=== PATIENT | female | born 1935 | race Caucasian/White ===

== ENCOUNTER 2021-08-04 10:15 | Inpatient (IN) ==
[2021-08-04 11:15] LABS: Bilirubin,Urine Negative (Negative); Blood,Urine Trace-intact (Negative); Clarity,Urine Clear (Clear); Color,Urine Yellow (Yellow); Glucose,Urine (UA) Normal (Normal); Ketones,Urine Trace mg/dL (Negative); Leukocyte Esterase,Urine Negative (Negative); Nitrite,Urine Negative (Negative); PH,Urine 7.5 pH Units (5.0-8.0); Protein,Urine 30 mg/dL (Neg-Trace); Urobilinogen,Urine Normal (Normal)
[2021-08-04 11:23] LABS: Basophils % 0.7 %; Eosinophils # 0.1 K/mcL (0.0-0.6); Eosinophils % 0.9 %; Hematocrit 43.3 % (35.3-44.9); Hemoglobin 14.5 g/dL (11.5-15.4); Immature Granulocytes % 0.2 % (0-4); Lymphocytes # 2.4 K/mcL (0.6-4.6); Lymphocytes % 45.7 %; Mean Corpuscular HGB Conc 33.5 g/dL (31.6-35.5); Mean Corpuscular Hemoglobin 30.5 pg (28.0-33.3); Mean Platelet Volume 10.4 fL (9.4-12.4); Monocytes # 0.6 K/mcL (0.0-1.3); Monocytes % 11.2 %; Neutrophils # 2.2 K/mcL (1.6-8.9); Platelet Count 219 K/mcL (140-400); Red Blood Count 4.76 M/mcL (3.82-4.97); Red Cell Distribution Width 14.5 % (11.5-14.5); Segmented Neutrophils % 41.3 %; White Blood Count 5.3 K/mcL (4.3-11.1)
[2021-08-04 11:31] LABS: INR 1.1; Prothrombin Time 11.7 Seconds (9.4-12.1)
[2021-08-04 11:36] LABS: Mucus,Urine Few per lpf (None-Few); RBC,Urine 0-3 per hpf (0-3)
[2021-08-04 11:40] LABS: Alanine Aminotransferase 22 Units/L (7-52); Albumin 3.8 g/dL (3.5-5.7); Albumin/Globulin Ratio 0.8 (1.1-2.2); Alkaline Phosphatase 65 Units/L (34-104); Aspartate Amino Transferase 34 Units/L (13-39); BUN/Creatinine Ratio 22 (6-26); Bilirubin,Total 0.4 mg/dL (0.3-1.0); Blood Urea Nitrogen 20 mg/dL (8-23); Calcium 9.1 mg/dL (8.6-10.3); Carbon Dioxide 24 mEq/L (23-29); Chloride 102 mEq/L (98-107); Globulin 4.5 g/dL (2.4-3.5); Glucose 107 mg/dL (70-105); Magnesium 1.9 mg/dL (1.6-2.6); Osmolality,Calculated 287 (280-300); Phosphorous 2.2 mg/dL (2.7-4.5); Potassium 4.1 mEq/L (3.5-5.1); Sodium 137 mEq/L (136-145); Total Protein 8.3 g/dL (6.4-8.9); eGFR For African Americans > 60 (> 60); eGFR For Non-African Americans > 60 (> 60)
[2021-08-04 11:43] LABS: Troponin I < 0.03 ng/mL (< 0.04)
[2021-08-04] MEDS ORDERED: Isovue-370 500 ML BOTTLE IVP ONE (11:44)
[2021-08-04] MEDS ORDERED: Acetaminophen 325 MG TABLET PO PRN (13:38)
[2021-08-04] MEDS ORDERED: Naloxone 0.4 MG/ML INJ IVP PRN (13:38)
[2021-08-04] MEDS ORDERED: Ondansetron 4 MG/2 ML VIAL IVP PRN (13:53)
[2021-08-04] MEDS: amLODIPine 5 MG TABLET PO SCH (16:42)
[2021-08-04] MEDS: 0.9 % Sodium Chloride 1,000 ML IVC SCH (16:44)
[2021-08-04] MEDS ORDERED: Benzonatate 100 MG CAPSULE PO PRN (17:44)
[2021-08-05] MEDS ORDERED: *HR* Enoxaparin 40 MG/0.4 ML SYRINGE SQ SCH (06:00)
[2021-08-05] MEDS: 0.9 % Sodium Chloride 1,000 ML IVC SCH (06:17)
[2021-08-05 07:50] LABS: Basophils # 0.1 K/mcL (0.0-0.2); Basophils % 0.6 %; Eosinophils % 0.5 %; Hematocrit 47.3 % (35.3-44.9); Hemoglobin 15.4 g/dL (11.5-15.4); Immature Granulocytes % 0.1 % (0-4); Lymphocytes # 3.3 K/mcL (0.6-4.6); Lymphocytes % 40.2 %; Mean Corpuscular HGB Conc 32.6 g/dL (31.6-35.5); Mean Corpuscular Hemoglobin 30.2 pg (28.0-33.3); Mean Corpuscular Volume 92.7 fL (83.0-100.0); Mean Platelet Volume 10.6 fL (9.4-12.4); Monocytes # 0.7 K/mcL (0.0-1.3); Monocytes % 8.6 %; Neutrophils # 4.2 K/mcL (1.6-8.9); Platelet Count 267 K/mcL (140-400); Red Cell Distribution Width 14.5 % (11.5-14.5); White Blood Count 8.3 K/mcL (4.3-11.1)
[2021-08-05 08:08] LABS: BUN/Creatinine Ratio 16 (6-26); Blood Urea Nitrogen 15 mg/dL (8-23); Calcium 8.6 mg/dL (8.6-10.3); Carbon Dioxide 24 mEq/L (23-29); Chloride 101 mEq/L (98-107); Glucose 121 mg/dL (70-105); Osmolality,Calculated 286 (280-300); Potassium 3.7 mEq/L (3.5-5.1); Sodium 137 mEq/L (136-145); eGFR For African Americans > 60 (> 60); eGFR For Non-African Americans 55 (> 60)
[2021-08-05] MEDS: amLODIPine 5 MG TABLET PO SCH (08:16)
[2021-08-05] MEDS ORDERED: hydrALAZINE 25 MG TABLET PO PRN (11:33)
[2021-08-05] MEDS ORDERED: amLODIPine 5 MG TABLET PO ONE (11:34)
[2021-08-06] MEDS: *HR* Enoxaparin 30 MG/0.3 ML SYRINGE SQ SCH ×2 (05:46→06:07)
[2021-08-06 07:54] LABS: BUN/Creatinine Ratio 20 (6-26); Blood Urea Nitrogen 18 mg/dL (8-23); Calcium 8.3 mg/dL (8.6-10.3); Carbon Dioxide 24 mEq/L (23-29); Chloride 106 mEq/L (98-107); Glucose 98 mg/dL (70-105); Magnesium 1.8 mg/dL (1.6-2.6); Osmolality,Calculated 290 (280-300); Potassium 3.4 mEq/L (3.5-5.1); Sodium 139 mEq/L (136-145); eGFR For African Americans > 60 (> 60); eGFR For Non-African Americans > 60 (> 60)
[2021-08-06] MEDS: Aspirin 81 MG TAB.CHEW PO SCH (08:02)
[2021-08-06] MEDS: amLODIPine 5 MG TABLET PO SCH (08:02)
[2021-08-06 08:09] LABS: Basophils % 0.4 %; Eosinophils # 0.1 K/mcL (0.0-0.6); Eosinophils % 1.1 %; Hematocrit 41.9 % (35.3-44.9); Immature Granulocytes % 0.4 % (0-4); Lymphocytes # 1.7 K/mcL (0.6-4.6); Lymphocytes % 31.7 %; Mean Corpuscular HGB Conc 33.4 g/dL (31.6-35.5); Mean Corpuscular Hemoglobin 30.4 pg (28.0-33.3); Mean Corpuscular Volume 91.1 fL (83.0-100.0); Mean Platelet Volume 10.7 fL (9.4-12.4); Monocytes # 0.5 K/mcL (0.0-1.3); Monocytes % 10.1 %; Platelet Count 212 K/mcL (140-400); Red Cell Distribution Width 14.4 % (11.5-14.5); Segmented Neutrophils % 56.3 %; White Blood Count 5.3 K/mcL (4.3-11.1)
[2021-08-07] MEDS: *HR* Enoxaparin 30 MG/0.3 ML SYRINGE SQ SCH (06:55)
[2021-08-07 07:14] VITALS: BP 148/77; PULSE 82; RESP 19; TEMP 97.6; O2SAT 98
[2021-08-07 07:43] LABS: Basophils % 0.4 %; Eosinophils % 0.8 %; Hematocrit 42.9 % (35.3-44.9); Hemoglobin 14.1 g/dL (11.5-15.4); Lymphocytes # 1.8 K/mcL (0.6-4.6); Mean Corpuscular HGB Conc 32.9 g/dL (31.6-35.5); Mean Corpuscular Hemoglobin 30.2 pg (28.0-33.3); Mean Corpuscular Volume 91.9 fL (83.0-100.0); Mean Platelet Volume 10.2 fL (9.4-12.4); Monocytes # 0.6 K/mcL (0.0-1.3); Monocytes % 11.2 %; Neutrophils # 2.6 K/mcL (1.6-8.9); Platelet Count 208 K/mcL (140-400); Red Blood Count 4.67 M/mcL (3.82-4.97); Red Cell Distribution Width 14.4 % (11.5-14.5); Segmented Neutrophils % 52.6 %
[2021-08-07 07:55] LABS: BUN/Creatinine Ratio 22 (6-26); Blood Urea Nitrogen 20 mg/dL (8-23); Calcium 8.6 mg/dL (8.6-10.3); Carbon Dioxide 29 mEq/L (23-29); Chloride 102 mEq/L (98-107); Glucose 99 mg/dL (70-105); Osmolality,Calculated 287 (280-300); Potassium 3.7 mEq/L (3.5-5.1); Sodium 137 mEq/L (136-145); eGFR For African Americans > 60 (> 60); eGFR For Non-African Americans 58 (> 60)
[2021-08-07] MEDS: amLODIPine 5 MG TABLET PO SCH (08:49)
[2021-08-07] MEDS: Aspirin 81 MG TAB.CHEW PO SCH (08:50)
[2021-08-07] MEDS ORDERED: Multivit/Ca/Min/Fe/FA 1 TAB TABLET PO SCH (09:00)
== END 2021-08-07 18:59 | DRG 178 ==
LOC: EMEROOPIK 10:15 → INPPIK 10:15
PROVIDERS: ADMIT Registered Nurse Emergency; ATTEND Registered Nurse Emergency

== ENCOUNTER 2021-08-07 17:06 | Inpatient (IN) ==
[2021-08-07] MEDS ORDERED: hydrALAZINE 25 MG TABLET PO PRN (18:21)
[2021-08-08] MEDS: *HR* Enoxaparin 30 MG/0.3 ML SYRINGE SQ SCH (05:25)
[2021-08-08 07:31] LABS: Basophils % 0.4 %; Eosinophils % 0.4 %; Hematocrit 40.8 % (35.3-44.9); Hemoglobin 13.7 g/dL (11.5-15.4); Immature Granulocytes % 0.2 % (0-4); Lymphocytes # 1.4 K/mcL (0.6-4.6); Lymphocytes % 31.8 %; Mean Corpuscular HGB Conc 33.6 g/dL (31.6-35.5); Mean Corpuscular Hemoglobin 30.7 pg (28.0-33.3); Mean Corpuscular Volume 91.5 fL (83.0-100.0); Mean Platelet Volume 10.3 fL (9.4-12.4); Monocytes # 0.5 K/mcL (0.0-1.3); Neutrophils # 2.5 K/mcL (1.6-8.9); Platelet Count 179 K/mcL (140-400); Red Blood Count 4.46 M/mcL (3.82-4.97); Red Cell Distribution Width 14.3 % (11.5-14.5); Segmented Neutrophils % 56.2 %; White Blood Count 4.5 K/mcL (4.3-11.1)
[2021-08-08 07:46] LABS: BUN/Creatinine Ratio 24 (6-26); Blood Urea Nitrogen 21 mg/dL (8-23); Calcium 8.4 mg/dL (8.6-10.3); Carbon Dioxide 27 mEq/L (23-29); Chloride 104 mEq/L (98-107); Glucose 104 mg/dL (70-105); Osmolality,Calculated 291 (280-300); Potassium 3.7 mEq/L (3.5-5.1); Sodium 139 mEq/L (136-145); eGFR For African Americans > 60 (> 60); eGFR For Non-African Americans > 60 (> 60)
[2021-08-08] MEDS: amLODIPine 5 MG TABLET PO SCH (09:36)
[2021-08-08] MEDS: Aspirin 81 MG TAB.CHEW PO SCH (09:36)
[2021-08-08] MEDS: Multivit/Ca/Min/Fe/FA 1 TAB TABLET PO SCH (09:36)
[2021-08-08] MEDS: Acetaminophen 325 MG TABLET PO PRN (21:54)
[2021-08-09] MEDS: *HR* Enoxaparin 30 MG/0.3 ML SYRINGE SQ SCH (05:11)
[2021-08-09] MEDS: Aspirin 81 MG TAB.CHEW PO SCH (09:05)
[2021-08-09] MEDS: amLODIPine 5 MG TABLET PO SCH (09:06)
[2021-08-09] MEDS: Multivit/Ca/Min/Fe/FA 1 TAB TABLET PO SCH (09:06)
[2021-08-10] MEDS: *HR* Enoxaparin 30 MG/0.3 ML SYRINGE SQ SCH (05:12)
[2021-08-10] MEDS: Aspirin 81 MG TAB.CHEW PO SCH (08:09)
[2021-08-10] MEDS: Multivit/Ca/Min/Fe/FA 1 TAB TABLET PO SCH (08:09)
[2021-08-10] MEDS: amLODIPine 5 MG TABLET PO SCH (08:09)
[2021-08-11] MEDS: *HR* Enoxaparin 30 MG/0.3 ML SYRINGE SQ SCH (05:37)
[2021-08-11] MEDS: amLODIPine 5 MG TABLET PO SCH (09:59)
[2021-08-11] MEDS: Aspirin 81 MG TAB.CHEW PO SCH (09:59)
[2021-08-11] MEDS: Multivit/Ca/Min/Fe/FA 1 TAB TABLET PO SCH (10:00)
[2021-08-11] MEDS: Acetaminophen 325 MG TABLET PO PRN (21:37)
[2021-08-12] MEDS: *HR* Enoxaparin 30 MG/0.3 ML SYRINGE SQ SCH (05:13)
[2021-08-12] MEDS: Acetaminophen 325 MG TABLET PO PRN (05:13)
[2021-08-12] MEDS: Aspirin 81 MG TAB.CHEW PO SCH (10:19)
[2021-08-12] MEDS: amLODIPine 5 MG TABLET PO SCH (10:19)
[2021-08-12] MEDS: Multivit/Ca/Min/Fe/FA 1 TAB TABLET PO SCH (10:19)
[2021-08-13] MEDS: *HR* Enoxaparin 30 MG/0.3 ML SYRINGE SQ SCH (06:27)
[2021-08-13] MEDS: amLODIPine 5 MG TABLET PO SCH (09:54)
[2021-08-13] MEDS: Aspirin 81 MG TAB.CHEW PO SCH (09:55)
[2021-08-13] MEDS: Multivit/Ca/Min/Fe/FA 1 TAB TABLET PO SCH (09:55)
[2021-08-14] MEDS: *HR* Enoxaparin 30 MG/0.3 ML SYRINGE SQ SCH (05:31)
[2021-08-14] MEDS: Multivit/Ca/Min/Fe/FA 1 TAB TABLET PO SCH (08:34)
[2021-08-14] MEDS: Aspirin 81 MG TAB.CHEW PO SCH (08:34)
[2021-08-14] MEDS: amLODIPine 5 MG TABLET PO SCH (08:35)
[2021-08-15] MEDS: *HR* Enoxaparin 30 MG/0.3 ML SYRINGE SQ SCH (06:00)
[2021-08-15] MEDS: amLODIPine 5 MG TABLET PO SCH (09:00)
[2021-08-15] MEDS: Aspirin 81 MG TAB.CHEW PO SCH (09:00)
[2021-08-15] MEDS: Multivit/Ca/Min/Fe/FA 1 TAB TABLET PO SCH (09:01)
[2021-08-15 09:23] LABS: Hematocrit 39.9 % (35.3-44.9); Hemoglobin 13.5 g/dL (11.5-15.4); Mean Corpuscular HGB Conc 33.8 g/dL (31.6-35.5); Mean Corpuscular Hemoglobin 30.3 pg (28.0-33.3); Mean Corpuscular Volume 89.5 fL (83.0-100.0); Mean Platelet Volume 10.6 fL (9.4-12.4); Platelet Count 230 K/mcL (140-400); Red Blood Count 4.46 M/mcL (3.82-4.97); Red Cell Distribution Width 13.4 % (11.5-14.5); White Blood Count 5.5 K/mcL (4.3-11.1)
[2021-08-15 09:26] LABS: BUN/Creatinine Ratio 33 (6-26); Blood Urea Nitrogen 28 mg/dL (8-23); Calcium 8.7 mg/dL (8.6-10.3); Carbon Dioxide 28 mEq/L (23-29); Chloride 100 mEq/L (98-107); Glucose 142 mg/dL (70-105); Osmolality,Calculated 290 (280-300); Potassium 3.6 mEq/L (3.5-5.1); Sodium 136 mEq/L (136-145); eGFR For African Americans > 60 (> 60); eGFR For Non-African Americans > 60 (> 60)
[2021-08-16] MEDS: *HR* Enoxaparin 30 MG/0.3 ML SYRINGE SQ SCH (06:03)
[2021-08-16] MEDS: amLODIPine 5 MG TABLET PO SCH (09:08)
[2021-08-16] MEDS: Multivit/Ca/Min/Fe/FA 1 TAB TABLET PO SCH (09:08)
[2021-08-16] MEDS: Aspirin 81 MG TAB.CHEW PO SCH (09:08)
[2021-08-17 03:54] LABS: Bilirubin,Urine Negative (Negative); Blood,Urine Negative (Negative); Clarity,Urine Clear (Clear); Color,Urine Yellow (Yellow); Glucose,Urine (UA) Normal (Normal); Ketones,Urine Negative (Negative); Leukocyte Esterase,Urine Negative (Negative); Nitrite,Urine Positive (Negative); Protein,Urine Trace mg/dL (Neg-Trace); Specific Gravity,Urine 1.015 (1.010-1.025); Urobilinogen,Urine Normal (Normal)
[2021-08-17] MEDS: *HR* Enoxaparin 30 MG/0.3 ML SYRINGE SQ SCH ×2 (05:32→05:59)
[2021-08-17 07:50] LABS: Bacteria,Urine Many per hpf (None-Few)
[2021-08-17] MEDS: amLODIPine 5 MG TABLET PO SCH (07:57)
[2021-08-17] MEDS: Aspirin 81 MG TAB.CHEW PO SCH (07:57)
[2021-08-17] MEDS: Multivit/Ca/Min/Fe/FA 1 TAB TABLET PO SCH (07:57)
[2021-08-18] MEDS: *HR* Enoxaparin 30 MG/0.3 ML SYRINGE SQ SCH (05:29)
[2021-08-18] MEDS: amLODIPine 5 MG TABLET PO SCH (08:43)
[2021-08-18] MEDS: Aspirin 81 MG TAB.CHEW PO SCH (08:43)
[2021-08-18] MEDS: Multivit/Ca/Min/Fe/FA 1 TAB TABLET PO SCH (08:43)
[2021-08-18] MEDS: Ondansetron ODT 4 MG TAB.RAPDIS SL PRN (20:28)
[2021-08-18] MEDS: Cefdinir 300 MG CAPSULE PO SCH (20:30)
[2021-08-19] MEDS: *HR* Enoxaparin 30 MG/0.3 ML SYRINGE SQ SCH (05:31)
[2021-08-19] MEDS: Multivit/Ca/Min/Fe/FA 1 TAB TABLET PO SCH (08:56)
[2021-08-19] MEDS: amLODIPine 5 MG TABLET PO SCH (08:56)
[2021-08-19] MEDS: Aspirin 81 MG TAB.CHEW PO SCH (08:56)
[2021-08-19] MEDS: Cefdinir 300 MG CAPSULE PO SCH ×2 (08:56→21:19)
[2021-08-19] MEDS: Ondansetron ODT 4 MG TAB.RAPDIS SL PRN (21:19)
[2021-08-20] MEDS: *HR* Enoxaparin 30 MG/0.3 ML SYRINGE SQ SCH (04:35)
[2021-08-20] MEDS: Aspirin 81 MG TAB.CHEW PO SCH (09:26)
[2021-08-20] MEDS: amLODIPine 5 MG TABLET PO SCH (09:27)
[2021-08-20] MEDS: Multivit/Ca/Min/Fe/FA 1 TAB TABLET PO SCH (09:27)
[2021-08-20] MEDS: Cefdinir 300 MG CAPSULE PO SCH ×2 (09:28→22:22)
[2021-08-20] MEDS: Ondansetron ODT 4 MG TAB.RAPDIS SL PRN (16:02)
[2021-08-20] MEDS: Acetaminophen 325 MG TABLET PO PRN (22:22)
[2021-08-21] MEDS: Ondansetron ODT 4 MG TAB.RAPDIS SL PRN (00:57)
[2021-08-21] MEDS: *HR* Enoxaparin 30 MG/0.3 ML SYRINGE SQ SCH (06:05)
[2021-08-21] MEDS: Multivit/Ca/Min/Fe/FA 1 TAB TABLET PO SCH (09:20)
[2021-08-21] MEDS: amLODIPine 5 MG TABLET PO SCH (09:21)
[2021-08-21] MEDS: Aspirin 81 MG TAB.CHEW PO SCH (09:21)
[2021-08-21] MEDS: Cefdinir 300 MG CAPSULE PO SCH ×2 (09:22→20:17)
[2021-08-21] MEDS ORDERED: *HR* LORazepam 0.5 MG TABLET PO PRN (11:16)
[2021-08-21 20:04] VITALS: TEMP 97.5
[2021-08-22] MEDS: *HR* Enoxaparin 30 MG/0.3 ML SYRINGE SQ SCH (05:40)
[2021-08-22 07:41] VITALS: BP 133/67; PULSE 79; RESP 16; O2SAT 95
[2021-08-22] MEDS: amLODIPine 5 MG TABLET PO SCH (07:46)
[2021-08-22] MEDS: Multivit/Ca/Min/Fe/FA 1 TAB TABLET PO SCH (07:46)
[2021-08-22] MEDS: Cefdinir 300 MG CAPSULE PO SCH (07:46)
[2021-08-22] MEDS: Aspirin 81 MG TAB.CHEW PO SCH (07:46)
== END 2021-08-22 10:00 | DRG 177 ==
LOC: INPPIK 19:00
PROVIDERS: ADMIT Internal Medicine; ATTEND Internal Medicine